=== PATIENT | male | born 1990 | race Caucasian/White ===

== ENCOUNTER 2018-05-13 13:59 | Emergency (ER) | payer MEDICAID ==
[~2018-05-13] VITALS: Ht 188 cm; Wt 87.7 kg
[2018-05-13 14:06] VITALS: Ht 188 cm; Wt 87.7 kg
[2018-05-13] MEDS ORDERED: AMOXICILLIN500 M1 PO (14:38)
[2018-05-13] MEDS ORDERED: HYDROCODON-ACE1 EAC7 PO (14:38)
[2018-05-13 15:04] VITALS: BP 129/88
== END 2018-05-13 15:05 | disposition home or self-care (01) ==
LOC: D.ER 13:59
DX: K08.89 Other specified disorders of teeth and supporting structures (principal); F17.200 Nicotine dependence, unspecified, uncomplicated

== ENCOUNTER 2018-06-16 15:46 | Emergency (ER) | payer MEDICAID ==
[~2018-06-16] VITALS: Ht 188 cm; Wt 89.1 kg
[~2018-06-16 15:46] MED LIST: AMOXICILLIN500 M1 PO; HYDROCODON-ACE1 EAC7 PO
[2018-06-16 17:01] VITALS: Ht 188 cm; Wt 89.1 kg
[2018-06-16] MEDS ORDERED: PHENERGAN DM SYR5 ML PO (19:01)
[2018-06-16] MEDS ORDERED: TAMIFLU75 MG PO (19:01)
[2018-06-16 19:32] VITALS: BP 128/80
== END 2018-06-16 19:26 | disposition home or self-care (01) ==
LOC: D.ER 15:46
DX: J09.X2 Influenza due to identified novel influenza A virus with other respiratory manifestations (principal)

== ENCOUNTER 2019-08-26 23:02 | Emergency (ER) | payer MEDICAID ==
[2018-06-16 17:01] VITALS: Ht 188 cm
[~2019-08-26 23:02] MED LIST changes: +PHENERGAN DM SYR5 ML PO; +TAMIFLU75 MG PO
== END 2019-08-26 23:05 | disposition left against medical advice (07) ==
LOC: D.ER 23:02
DX: R07.9 Chest pain, unspecified (principal)